=== PATIENT | female | born 1935 | race Caucasian/White ===

== ENCOUNTER 2017-07-17 15:59 | Observation (INO) | payer OTHER ==
[~2017-07-17] VITALS: Ht 154.9 cm; Wt 93.7 kg
[~2017-07-17 15:59] MED LIST: ACETAMINOPHEN500 M1 PO; ADVIL200 MG PO; ALEVE220 MG PO; AMINO ACID1 EACH PO; Ascorbic Acid PO; BIOFLAVONOIDS; BIOFREEZE GEL; CALCIUM 500 +1 EAC4; CALMAG THINS T1 EACH PO; CHONDROITIN SU250 MG PO; COLACE100 MG PO; COUMADIN PO; CRANBERRY; CRANBERRY PO; CRANBERRY450 M1 PO; CULTURELLE CAP1 EACH PO; Calcium 500 + Vit D PO; Colace PO; Cranberry PO; DAIRY AID3000 UNI1 PO; DIURETIC; EVENING PRIMRO500 MG PO; FISH OIL 1,0001 EAC4 PO; FORMULA E400 UNIT PO; Feosol PO; GLUCOSAMINE 1,1 EAC1 PO; GLUCOSAMINE1 CAPSULE PO; HORSE CHESTNUT300 M1 PO; HYDROCODON-ACE1 EAC8 PO; Humibid LA,Mucinex PO; LASIX20 MG PO; LIDODERM 5% P1 PATCH TD; LIFE-PACK0.8 MG PO; LOPRESSOR25 MG PO; Lasix PO; Lopressor PO; MAGNESIUM GLUCONATE; MEDROL DOSE PAK PO; MEDROL DOSEPAK4 MG; MUCINEX1200 MG PO; MULTI FOR HER1 EACH PO; MULTIVITAMIN1 EAC2 PO; Melatonin PO; Miralax, Glycolax PO; OMEGA-3 + VITA1 EAC1 PO; Ocean Nasal 0.65% NS; Oscal 500 w/Vitamin PO; PROTEIN LIQUID PO; Protonix PO; SENOKOT S,PE1 TABLET PO; Senokot S,Pericolace PO; Senokot-S Tablet PO; Super B Complex-C PO; THERAGRAN1 TABLET PO; TUMS ULTRA1000 MG PO; TYLENOL EXTRA500 MG PO; Theragran PO; Tums,OsCal PO; Tylenol Extra Streng PO; ULTRAM50 MG PO; VIBRAMYCIN100 MG PO; VITAMIN A25000 UNIT PO; VITAMIN C PO; VITAMIN D1000 INTUN PO; VITAMIN D2000 UNIT PO; VITAMIN D31000 UNIT PO; VITAMIN E400 UNI6 PO; VITAMIN E400 UNIT PO; Vibramycin, Doryx PO; Vicodin,Norco 5/325 PO; Vitamin-E PO; XOPENEX HF200 INHALA IH; Xopenex HFA Inhaler IH; [UNRECOGNIZED DRUG - OTHER]; [UNRECOGNIZED DRUG - OTHER]; [UNRECOGNIZED DRUG - OTHER] PO; [UNRECOGNIZED DRUG - REMARK] PO; celeBREX PO
[2017-07-17 16:28] LABS: HEMATOCRIT 39.4 % (36.0-46.0); MCH 32.8 PG (29.0-34.0); MCHC 33.2 G/DL (30.0-36.0); MCV 98.7 FL (83-99); MEAN PLAT.VOLUME 10.4 uM^3 (9.5-12.4); PLATELET COUNT 203 K/uL (156-360); RBC DIS.WIDTH-CV 13.8 % (11.8-14.6); RBC DIS.WIDTH-SD 50.4 % (39-53); RED BLOOD COUNT 3.99 M/uL (3.80-5.20); WHITE BLOOD COUNT 6.1 K/uL (4.1-10.2)
[2017-07-17 16:37] LABS: CHLORIDE 102 mEq/L (99-109); POTASSIUM 3.9 mEq/L (3.7-5.4); SODIUM 140 mEq/L (136-147)
[2017-07-17 16:38] LABS: GLUCOSE 150 mg/dL (70-99)
[2017-07-17 16:40] LABS: ANION GAP 16 MEQ/L (2-14)
[2017-07-17 16:42] LABS: GFR ESTIMATE (CALCULATED) > 59 mL/min/
[2017-07-17 16:43] LABS: UREA NITROGEN (BUN) 21 mg/dL (9-23)
[2017-07-17 16:48] LABS: TROP-I INTERPRETATION NEGATIVE; TROPONIN-I 0.01 ng/mL (0.0-0.30)
[2017-07-17 19:40] LABS: ADD MIUA? YES; BILIRUBIN NEGATIVE; BLOOD NEGATIVE; COLOR YELLOW ((YELLOW)); GLUCOSE (STRIP) NEGATIVE; KETONES 5; LEUKOCYTES NEGATIVE; NITRITE POSITIVE; PROTEIN (STRIP) NEGATIVE; SPECIFIC GRAVITY 1.014 (1.000-1.030); UROBILINOGEN 0.2 MG/DL (0.2-1.0)
[2017-07-17 19:47] LABS: BACTERIA 1+ /HPF; EPITHELIAL CELLS RARE /HPF; HYALINE CASTS 0-5 /LPF; MUCUS TRACE /LPF; RED BLOOD CELLS 0-5 /HPF (0-5); UCUL ADDED? NO; WHITE BLOOD CELLS 0-5 /HPF (0-5)
[2017-07-17] MEDS ORDERED: VITAMIN D35000 UNIT PO (22:32)
[2017-07-17] MEDS ORDERED: VITAMIN E400 UNIT PO (22:33)
[2017-07-17] MEDS ORDERED: OMEGA-31000 M1 PO (22:35)
[2017-07-17] MEDS ORDERED: VITAMIN C1000 MG PO (22:35)
[2017-07-17] MEDS ORDERED: CRANBERRY425 MG PO (22:35)
[2017-07-17] MEDS ORDERED: SUPER B MAXI C0.4 MG PO (22:36)
[2017-07-17] MEDS ORDERED: CLARITIN10 MG PO (22:37)
[2017-07-17] MEDS ORDERED: PROLIA60 MG/1 ML SC (22:37)
[2017-07-17] MEDS ORDERED: CALCITRIOL0.25 MCG PO (22:37)
[2017-07-17] MEDS ORDERED: XLEAR (22:38)
[2017-07-17] MEDS ORDERED: AFRIN,GENASAL D15 ML BOTH NARES (22:38)
[2017-07-17 23:30] VITALS: BP 117/56
[2017-07-18] VITALS (7 sets, daily range): BP systolic 91–119; BP diastolic 44–56
[2017-07-18 05:46] LABS: TROP-I INTERPRETATION NEGATIVE
[2017-07-18 05:54] LABS: ANION GAP 8 MEQ/L (2-14); CHLORIDE 108 MEQ/L (99-109); GFR ESTIMATE (CALCULATED) > 59 mL/min/; MAGNESIUM 1.9 mg/dl (1.3-2.7); POTASSIUM 3.3 MEQ/L (3.7-5.4); SAMPLE HEMOLYSIS CHECK 0; SAMPLE ICTERIC CHECK 0; SAMPLE LIPEMIA CHECK 0; SODIUM 143 MEQ/L (136-147); UREA NITROGEN (BUN) 16 mg/dL (9-23)
[2017-07-18 05:57] LABS: GLUCOSE 101 mg/dL (70-99)
[2017-07-19 03:36] VITALS: BP 125/58
[2017-07-19 05:25] LABS: BASOPHIL COUNT 0.1 K/uL (0-0.1); EOSINOPHIL (%) 11.5 % (0-5); EOSINOPHIL COUNT 0.6 K/uL (0-0.3); HEMATOCRIT 35.4 % (36.0-46.0); IMMATURE GRANULOCYTE (%) 0.2 % (0.0-0.7); INSTRUMENT ABS NEUTROPHIL CT 2.4 K/uL; LYMPHOCYTE COUNT 1.7 K/uL (1.0-2.8); MCH 32.7 PG (29.0-34.0); MCHC 32.2 G/DL (30.0-36.0); MCV 101.4 FL (83-99); MONOCYTE (%) 14.7 % (3-12); MONOCYTE COUNT 0.8 K/uL (0-0.8); NEUTROPHIL (%) 42.2 % (45-76); NEUTROPHIL COUNT 2.4 K/uL (1.8-6.4); PLATELET COUNT 178 K/uL (156-360); RBC DIS.WIDTH-CV 14.3 % (11.8-14.6); RBC DIS.WIDTH-SD 53.3 % (39-53); RED BLOOD COUNT 3.49 M/uL (3.80-5.20); WHITE BLOOD COUNT 5.6 K/uL (4.1-10.2)
[2017-07-19 06:11] LABS: ANION GAP 5 MEQ/L (2-14); CHLORIDE 111 MEQ/L (99-109); GFR ESTIMATE (CALCULATED) > 59 mL/min/; GLUCOSE 83 mg/dL (70-99); SAMPLE HEMOLYSIS CHECK 0; SAMPLE ICTERIC CHECK 0; SAMPLE LIPEMIA CHECK 0; SODIUM 143 MEQ/L (136-147); UREA NITROGEN (BUN) 14 mg/dL (9-23)
[2017-07-19 06:12] LABS: POTASSIUM 4.3 MEQ/L (3.7-5.4)
[2017-07-19 09:38] VITALS: BP 125/60
[2017-07-19 11:49] VITALS: BP 114/57
[2017-07-19] MEDS ORDERED: Milk Of Magnesia,MOM PO (15:04)
[2017-07-19] MEDS ORDERED: DOCUSATE SODIU100 MG PO (15:04)
[2017-07-19 16:08] VITALS: BP 120/56
== END 2017-07-19 16:59 ==
LOC: EME 15:59 → EDOF 20:57 → ENRESERV 21:00 → 5WEST 22:45 → ENPENDDIS 07-19 → 5WEST 07-19 16:59
PROVIDERS: Emergency Medicine; Family Medicine
DX: R55 Syncope and collapse (principal); R56.9 Unspecified convulsions; I95.9 Hypotension, unspecified; F41.9 Anxiety disorder, unspecified; S01.552A Open bite of oral cavity, initial encounter; X58.XXXA Exposure to other specified factors, initial encounter; N39.0 Urinary tract infection, site not specified; E87.6 Hypokalemia; M19.90 Unspecified osteoarthritis, unspecified site; J32.2 Chronic ethmoidal sinusitis; J32.3 Chronic sphenoidal sinusitis; K59.00 Constipation, unspecified; R29.6 Repeated falls; Z86.73 Personal history of transient ischemic attack (TIA), and cerebral infarction without residual deficits; Z85.51 Personal history of malignant neoplasm of bladder; Z87.891 Personal history of nicotine dependence; Z88.0 Allergy status to penicillin; Z88.8 Allergy status to other drugs, medicaments and biological substances
CPT/HCPCS: 70450; 80048; 81003; 83735; 84484; 85025; 85027; 93005; 95819; 99281; 99285; G0378; G8978 GP CK; G8979 CJ; J0696; J1650; J7030; J7050

== ENCOUNTER 2018-02-07 08:17 | Emergency (ER) | payer OTHER ==
[~2018-02-07] VITALS: Ht 154.9 cm; Wt 103.0 kg
[~2018-02-07 08:17] MED LIST changes: +AFRIN,GENASAL D15 ML BOTH NARES; +CALCITRIOL0.25 MCG PO; +CLARITIN10 MG PO; +CRANBERRY425 MG PO; +DOCUSATE SODIU100 MG PO; +KEPPRA250 MG PO; +KEPPRA500 MG PO; +LEVETIRACETAM500 MG PO; +Milk Of Magnesia,MOM PO; +OMEGA-31000 M1 PO; +PROLIA60 MG/1 ML SC; +SUPER B MAXI C0.4 MG PO; +VITAMIN C1000 MG PO; +VITAMIN D35000 UNIT PO; +XLEAR
[2018-02-07 13:38] LABS: HEMATOCRIT 42.1 % (36.0-46.0); HEMOGLOBIN 13.9 G/DL (11.9-15.5); MCH 31.2 PG (29.0-34.0); MCV 94.4 FL (83-99); PLATELET COUNT 264 K/uL (156-360); RBC DIS.WIDTH-CV 15.3 % (11.8-14.6); RBC DIS.WIDTH-SD 52.8 % (39-53); RED BLOOD COUNT 4.46 M/uL (3.80-5.20); WHITE BLOOD COUNT 7.2 K/uL (4.1-10.2)
[2018-02-07 13:49] LABS: APPEARANCE CLEAR ((CLEAR)); BILIRUBIN NEGATIVE; BLOOD NEGATIVE; COLOR YELLOW ((YELLOW)); GLUCOSE (STRIP) NEGATIVE; KETONES NEGATIVE; LEUKOCYTES NEGATIVE; NITRITE NEGATIVE; PROTEIN (STRIP) NEGATIVE; SPECIFIC GRAVITY 1.014 (1.000-1.030); UROBILINOGEN 0.2 MG/DL (0.2-1.0)
[2018-02-07 13:49] LABS: ALBUMIN 4.2 g/dL (3.2-4.8); CHLORIDE 103 mEq/L (99-109); POTASSIUM 3.8 mEq/L (3.7-5.4); SODIUM 141 mEq/L (136-147)
[2018-02-07 13:51] LABS: GLUCOSE 97 mg/dL (70-99); TOTAL PROTEIN 7.8 g/dL (6.4-8.3)
[2018-02-07 13:53] LABS: TOTAL BILIRUBIN 0.5 mg/dL (0.0-1.0)
[2018-02-07 13:55] LABS: ALKALINE PHOSPHATASE 55 IU/L (3-129); CREATININE 0.7 mg/dL (0.6-1.3); GFR ESTIMATE (CALCULATED) > 59 mL/min/
[2018-02-07 13:56] LABS: UREA NITROGEN (BUN) 20 mg/dL (9-23)
[2018-02-07 13:57] LABS: AST (GOT) 24 IU/L (2-34)
[2018-02-07 13:58] LABS: ALT (GPT) 16 IU/L (3-49)
[2018-02-07 15:12] VITALS: BP 110/49
== END 2018-02-07 13:49 | disposition home or self-care (01) ==
LOC: EME 08:17 → EDOF 13:10 → EME 13:10 → EDOF 13:10 → ENRESERV 13:12 → EME 13:49 → EDOF 15:05
PROVIDERS: Physician Assistant
DX: M54.5 Low back pain (principal); I89.0 Lymphedema, not elsewhere classified; Z85.51 Personal history of malignant neoplasm of bladder; Z87.891 Personal history of nicotine dependence; Z88.6 Allergy status to analgesic agent; Z88.0 Allergy status to penicillin; Z88.1 Allergy status to other antibiotic agents; Z88.5 Allergy status to narcotic agent; Z88.8 Allergy status to other drugs, medicaments and biological substances
CPT/HCPCS: 72100; 80053; 81003; 85027; 99281; 99283; G0378; G8978 GP CM; G8979 GP CK; G8987 CK; G8988 GO CJ